=== PATIENT | female | born 1970 | race African-American/Black ===

== ENCOUNTER 2024-10-14 00:55 | Emergency (ER) | payer BC, OTHER ==
[~2024-10-14] VITALS: Ht 165.1 cm; Wt 73.0 kg
[2024-10-14 01:10] VITALS: O2SAT 98
[2024-10-14 02:14] LABS: BASOPHILS % 0.4 % (0.0-2.0); EOSINOPHILS % 1.5 % (0.0-5.0); HEMATOCRIT. 35.7 % (36.0-48.0); HEMOGLOBIN. 12.1 g/dL (12.0-16.0); LYMPHOCYTES % 22.9 % (20.0-50.0); MEAN PLATELET VOLUME 7.7 fl (7.4-10.4); MONOCYTES % 8.0 % (2.0-8.0); NEUTROPHILS % 67.2 % (40.0-76.0); PLATELET 317 x1000/uL (130-400); RED BLOOD CELL COUNT 4.14 mill/uL (4.2-5.4); RED CELL DISTRIBUTION WIDTH 14.1 % (11.6-14.6)
[2024-10-14 02:28] LABS: CREATININE 0.7 mg/dL (0.6-1.0); UREA NITROGEN BLOOD 18 mg/dL (9-23)
[2024-10-14 02:30] LABS: ASPARTATE AMINOTRANSFERASE 15 IU/L (<34); BILIRUBIN DIRECT 0.1 mg/dL (<=3.0); BILIRUBIN TOTAL 0.5 mg/dL (0.1-1.0); PROTEIN TOTAL 6.3 g/dL (6.0-8.3)
[2024-10-14] MEDS: ACETAMINOPHEN 1000MG/100ML 100 ML IV ONE (03:11)
[2024-10-14] MEDS: SODIUM CHLORIDE 0.9% 1,000 ML IV ONE (03:11)
[2024-10-14 03:29] LABS: HCG SCREEN NEGATIVE
[2024-10-14 03:40] LABS: CLARITY URINE CLEAR (CLEAR); COLOR URINE YELLOW (YELLOW); GLUCOSE URINE NEGATIVE (NEGATIVE); KETONES URINE TRACE (NEGATIVE); LEUKOCYTE ESTERASE URINE NEGATIVE (NEGATIVE); NITRITE URINE NEGATIVE (NEGATIVE); OCCULT BLOOD URINE NEGATIVE (NEGATIVE); PH URINE 5.5 (4.5-8.0); PROTEIN URINE NEGATIVE (NEGATIVE); SPECIFIC GRAVITY URINE 1.016 (1.005-1.030); UROBILINOGEN URINE 0.2 E.U./dL (0.2-1.0)
[2024-10-14] MEDS ORDERED: ONDA-239 PO (06:07)
[2024-10-14] MEDS: IOHEXOL-300 100 ML BOTTLE ONE (06:15)
[2024-10-14] MEDS: ONDANSETRON HCL 4MG/2ML INJ IV ONE (06:16)
[2024-10-14 06:30] VITALS: BP 137/81; PULSE 70; RESP 16; TEMP 36.9; O2SAT 99
== END 2024-10-14 06:45 | disposition home or self-care (01) ==
LOC: ER 00:55
DX: N83.201 Unspecified ovarian cyst, right side (principal); Z88.0 Allergy status to penicillin
CPT/HCPCS: 80076; 80048; 81003; 81025; 84703; 83690; 85025; 36415; 74177; 76856; 93005; 96365; 96375; 99285; Q9967; J2405; J7030; Z7610; A4606; J0131